=== PATIENT | male | born 1960 | race Hispanic/Latino ===

== ENCOUNTER 2016-09-28 19:01 | Emergency (ER) | payer BC ==
[2016-09-28 19:02] VITALS: BMI 39.8
[2016-09-28 19:16] VITALS: TEMP 98.2
[2016-09-28] MEDS ORDERED: DiphenhydrAMINE 50 mg/ml Inj IVP STA (19:56)
--- NOTE | 2016-09-28 20:02 | ED PDOC ---
Arrival/HPI - General Chief Complaint: Allergic Reaction Time Seen by Provider: 09/28/16 19:43 - History of Present Illness Narrative History of Present Illness (Text): 56M c/o swelling in his upper lip he noticed about 2 hours ago. he says he woke up from a nap this afternoon around 2pm and felt a "funny" sensation above his lip at that time. feel his sx now are about the same, maybe slightly improved. he had hernia surgery 8 days ago and says he thinks this provoked a gout attack (both knees) and so he started taking colchicine which normally helps his attacks. he is also on lisinipril for the last couple years. no FH of angioedema -like sx that he is aware of. Past Medical History - Infectious Disease Hx of Infectious Diseases: None - Cardiac Hx Hypertension: Yes - Psychiatric Hx Depression: No Hx Emotional Abuse: No Hx Physical Abuse: No Hx Substance Use: No - Surgical History Other/Comment: recent hernia surgery - Anesthesia Hx Anesthesia Reactions: No Hx Malignant Hyperthermia: No - Suicidal Assessment Feels Threatened In Home Enviroment: No Family/Social History Family/Social History: Other (nc) Smoking Status: Current Some Days Smoker Hx Alcohol Use: Yes Hx Substance Use: No Hx Substance Use Treatment: Yes Allergies/Home Meds Allergies/Adverse Reactions: Allergies No Known Allergies Allergy (Verified 02/28/12 08:46) Home Medications: Home Meds Medication Instructions Recorded Confirmed Atenolol 50 mg PO DAILY 02/28/12 09/28/16 Lisinopril [Zestril] 40 mg PO DAILY 09/28/16 09/28/16 Review of Systems - Physician Review All systems were reviewed & negative as marked: Yes - Review of Systems Constitutional: absent: Fevers ENT: absent: Hearing Changes Respiratory: absent: SOB, Cough Cardiovascular: absent: Chest Pain Gastrointestinal: absent: Nausea, Vomiting Skin: absent: Rash, Pruritis Neurological: absent: Headache, Focal Weakness Endocrine: absent: Diaphoresis Physical Exam Vital Signs Temp Pulse Resp BP Pulse Ox 09/28/16 19:01 98.2 F 82 16 152/88 H 98 - Systems Exam Head: Present: Atraumatic Pupils: Present: PERRL Extroacular Muscles: Present: EOMI Mouth: Present: Moist Mucous Membranes, Normal Tounge, Other (no swelling inside the mouth or throat). No: Drooling, Trismus, Normal Lips (mild upper lip edema) Pharnyx: No: Uvular Deviation, Muffled/Hoarse Voice, Str[place], Soft Palate/ Uvular Edema Nose (Internal): No: Edematous Neck: Present: Normal Range of Motion Cardiovascular: Present: Regular Rate and Rhythm Neurological: Present: GCS=15, Motor Func Grossly Intact, Normal Sensory Function Skin: Present: Warm, Dry Psychiatric: Present: Alert, Oriented x 3 Medical Decision Making ED Course and Treatment: 09/28/16 22:08 pt resting comfortably, no distress. lip appears less swollen and pt reports feeling better. I did offer admission for observation but he is comfortable w dc home which I feel is reasonable and will return if worse. Advised stop lisinopril. - Lab Interpretations Lab Results: 09/28/16 19:30 09/28/16 19:30 Lab Results 09/28/16 19:30: Sodium 137, Potassium 4.0, Chloride 103, Carbon Dioxide 25, Anion Gap 13, BUN 20, Creatinine 0.8, Est GFR ( Amer) > 60, Est GFR (Non- Af Amer) > 60, Random Glucose 93, Calcium 9.9, Total Bilirubin 0.4, AST 24, ALT 33, Alkaline Phosphatase 60, Total Protein 7.8, Albumin 4.5, Globulin 3.3, Albumin/Globulin Ratio 1.4 09/28/16 19:30: WBC 8.1, RBC 4.12, Hgb 13.3 L, Hct 38.2 L, MCV 92.7, MCH 32.3, MCHC 34.8, RDW 12.4, Plt Count 244, MPV 11.2 H, Gran % 67.5, Lymph % (Auto) 22.1 , [place] % (Auto) 8.6 H, Eos % (Auto) 1.6, Baso % (Auto) 0.2, Gran # 5.48, Lymph # 1.8, [place] # 0.7 H, Eos # 0.1, Baso # 0.02 - Medication Orders Current Medication Orders: Discontinued Medications Diphenhydramine HCl (Benadryl) 50 mg IVP STAT STA Stop: 09/28/16 19:57 Last Admin: 09/28/16 20:15 Dose: 50 mg Famotidine (Pepcid) 40 mg IVP STAT STA Stop: 09/28/16 19:57 Last Admin: 09/28/16 20:15 Dose: 40 mg Methylprednisolone (Solu-Medrol) 125 mg IVP STAT STA Stop: 09/28/16 19:57 Last Admin: 09/28/16 20:13 Dose: 125 mg Disposition/Present on Arrival - Present on Arrival Any Indicators Present on Arrival: No History of DVT/PE: No History of Uncontrolled Diabetes: No Urinary Catheter: No History of Decub. Ulcer: No History Surgical Site Infection Following: None - Disposition Have Diagnosis and Disposition been Completed?: Yes Diagnosis: Angioedema Disposition: HOME/ ROUTINE Disposition Time: 22:09 Condition: IMPROVED
[2016-09-28 20:09] LABS: ADD MANUAL DIFF? NO
[2016-09-28 20:14] LABS: BASO # 0.02 K/mm3 (0.0-2.0); BASO % 0.2 % (0.0-3.0); EOS # 0.1 (0.0-0.7); EOS % 1.6 % (1.5-5.0); GRAN # 5.48 (1.4-6.5); GRAN % 67.5 % (50.0-68.0); HEMATOCRIT 38.2 % (42.0-52.0); LYMPH # 1.8 (1.2-3.4); LYMPH % 22.1 % (22.0-35.0); MEAN CELL VOLUME 92.7 fL (80.0-105.0); MEAN CORPUSCULAR HEMOGLOBIN 32.3 pg (25.0-35.0); MEAN CORPUSCULAR HGB CONC 34.8 g/dl (31.0-37.0); MEAN PLATELET VOLUME 11.2 fl (7.0-11.0); MONO # 0.7 (0.1-0.6); MONO % 8.6 % (1.0-6.0); PLATELET COUNT 244 10^3/uL (120.0-450.0); RED CELL DISTRIBUTION WIDTH 12.4 % (11.5-14.5); WHITE BLOOD COUNT 8.1 10^3/ul (4.5-11.0)
[2016-09-28 20:27] LABS: ALB/GLOB RATIO 1.4 (1.1-1.8); ALKALINE PHOSPHATASE 60 U/L (38-133); ALT/SGPT 33 U/L (7-56); AST/SGOT 24 U/L (15-59); BILIRUBIN,TOTAL 0.4 mg/dL (0.2-1.3); BLOOD UREA NITROGEN 20 mg/dL (7-21); CALCIUM 9.9 mg/dL (8.4-10.5); CARBON DIOXIDE 25 mmol/L (21-33); CHLORIDE 103 mmol/L (98-107); GFR AFRICAN-AMERICAN > 60; GLUCOSE,RANDOM 93 mg/dL (70-110); SODIUM 137 mmol/L (132-148); TOTAL PROTEIN 7.8 g/dL (5.8-8.3)
[2016-09-28 22:22] VITALS: BP 128/84; PULSE 74; RESP 18; O2SAT 97
== END 2016-09-28 22:25 | disposition home or self-care (01) ==
LOC: ED 19:01
DX: T78.3XXA Angioneurotic edema, initial encounter (principal)
CPT/HCPCS: 80053; 85025; 96374; 96375; 99283; J1200; J2930

== ENCOUNTER 2016-10-01 15:32 | Emergency (ER) | payer BC ==
[2016-10-01 15:37] VITALS: BMI 22.4
[2016-10-01 15:41] VITALS: TEMP 98
--- NOTE | 2016-10-01 15:54 | ED PDOC ---
Arrival/HPI - General Chief Complaint: High Blood Pressure Time Seen by Provider: 10/01/16 15:46 - History of Present Illness Narrative History of Present Illness (Text): 10/01/16 15:53 56 yo male, hx of htn, rpesetns with "high blood pressure". as per pt, stopped lisinopril after had upper lip swelling on . unable to see pmd. denies any other complaits. no cp, sob, cuellar, abd pain n/v/d Past Medical History - Provider Review Nursing Documentation Reviewed: Yes - Infectious Disease Hx of Infectious Diseases: None - Cardiac Hx Hypertension: Yes - Psychiatric Hx Depression: No Hx Emotional Abuse: No Hx Physical Abuse: No Hx Substance Use: No - Surgical History Other/Comment: recent hernia surgery - Anesthesia Hx Anesthesia: Yes Hx Anesthesia Reactions: No Hx Malignant Hyperthermia: No - Suicidal Assessment Feels Threatened In Home Enviroment: No Family/Social History - Physician Review Nursing Documentation Reviewed: Yes Family/Social History: Unknown Family HX Smoking Status: Heavy Smoker > 10 Cigarettes Daily Hx Alcohol Use: Yes Hx Substance Use: No Hx Substance Use Treatment: Yes Allergies/Home Meds Allergies/Adverse Reactions: Allergies lisinopril Allergy (Verified 10/01/16 15:43) ANGIOEDEMA Home Medications: Home Meds Medication Instructions Recorded Confirmed Atenolol [Tenormin] 50 mg PO DAILY 10/01/16 10/01/16 Review of Systems - Review of Systems Constitutional: Normal Eyes: Normal ENT: Normal Respiratory: Normal Cardiovascular: Normal Gastrointestinal: Normal Genitourinary Male: Normal Musculoskeletal: Normal Skin: Normal Neurological: Normal Endocrine: Normal Hemo/Lymphatic: Normal Psychiatric: Normal Physical Exam Vital Signs Temp Pulse Resp BP Pulse Ox 10/01/16 18:14 65 17 157/90 H 100 10/01/16 17:32 62 16 162/92 H 99 10/01/16 15:41 98.0 F 78 18 178/89 H 97 Temperature: Afebrile Blood Pressure: Normal Pulse: Regular Respiratory Rate: Normal Appearance: Positive for: Well-Appearing, Non-Toxic, Comfortable Pain Distress: None Mental Status: Positive for: Alert and Oriented X 3 - Systems Exam Head: Present: Atraumatic, Normocephalic Pupils: Present: PERRL Extroacular Muscles: Present: EOMI Conjunctiva: Present: Normal Mouth: Present: Moist Mucous Membranes Neck: Present: Normal Range of Motion Respiratory/Chest: Present: Clear to Auscultation, Good Air Exchange. No: Respiratory Distress, Accessory Muscle Use Cardiovascular: Present: Regular Rate and Rhythm, Normal S1, S2. No: Murmurs Abdomen: Present: Normal Bowel Sounds. No: Tenderness, Distention, Peritoneal Signs Back: Present: Normal Inspection Upper Extremity: Present: Normal Inspection. No: Cyanosis, Edema Lower Extremity: Present: Normal Inspection. No: Edema Neurological: Present: GCS=15, CN II-XII Intact, Speech Normal, Motor Func Grossly Intact, Normal Sensory Function, Normal Cerebellar Funct Skin: Present: Warm, Dry, Normal Color. No: Rashes Psychiatric: Present: Alert, Oriented x 3, Normal Insight, Normal Concentration Medical Decision Making ED Course and Treatment: 10/01/16 15:53 suspected hypertensive urgency, r/o hypertensive emergency. labs pending. 10/01/16 17:10 no e/o of hypertesniev emergency. will start hctz until pmd f/u on sat. - Lab Interpretations Lab Results: 10/01/16 16:10 10/01/16 16:10 Lab Results 10/01/16 16:15: Urine Color Yellow, Urine Appearance Clear, Urine pH 6.0, Ur Specific [place] 1.020, Urine Protein Negative, Urine Glucose (UA) Negative, Urine Ketones Negative, Urine Blood Negative, Urine Nitrate Negative, Urine Bilirubin Negative, Urine Urobilinogen 0.2, Ur Leukocyte Esterase Negative 10/01/16 16:10: WBC 7.7, RBC 4.33, Hgb 13.8 L, Hct 39.8 L, MCV 91.9, MCH 31.9, MCHC 34.7, RDW 12.3, Plt Count 250, MPV 10.9, Gran % 66.3, Lymph % (Auto) 25.6, [place] % (Auto) 6.8 H, Eos % (Auto) 0.9 L, Baso % (Auto) 0.4, Gran # 5.13, Lymph # 2.0, [place] # 0.5, Eos # 0.1, Baso # 0.03 10/01/16 16:10: Sodium 138, Potassium 4.0, Chloride 103, Carbon Dioxide 26, Anion Gap 13, BUN 25 H, Creatinine 0.8, Est GFR ( Amer) > 60, Est GFR ( Non-Af Amer) > 60, Random Glucose 100, Calcium 10.3, Magnesium 2.0, Total Bilirubin 0.4, AST 22, ALT 33, Alkaline Phosphatase 54, Lactate Dehydrogenase 280 L, Total Creatine Kinase 28 L, Troponin I < 0.01, Total Protein 7.7, Albumin 4.6, Globulin 3.1, Albumin/Globulin Ratio 1.5 10/01/16 16:10: PT 11.0, INR 1.02, APTT 30.1 Disposition/Present on Arrival - Present on Arrival Any Indicators Present on Arrival: No History of DVT/PE: No History of Uncontrolled Diabetes: No Urinary Catheter: No History of Decub. Ulcer: No History Surgical Site Infection Following: None - Disposition Have Diagnosis and Disposition been Completed?: Yes Diagnosis: Hypertension Disposition: HOME/ ROUTINE Disposition Time: 06:00 Condition: STABLE Discharge Instructions (ExitCare): Hypertension (ED) Additional Instructions: please follow upw ith your doctor. return toe r with worsening symptoms or concerns. Prescriptions: hydroCHLOROthiazide [Microzide] 12.5 mg PO DAILY #5 cap Referrals: Jackie Flores MD [Primary Care Provider] - Follow up with primary [facility] [Outside] - Follow up with primary [facility] [place]] - Follow up with primary
[2016-10-01 16:30] LABS: ADD MANUAL DIFF? NO
[2016-10-01 16:32] LABS: URINE BILIRUBIN NEGATIVE (NEGATIVE); URINE BLOOD NEGATIVE (NEGATIVE); URINE GLUCOSE (UA) NEGATIVE (NEGATIVE); URINE KETONE NEGATIVE (NEGATIVE); URINE LEUKOCYTE ESTERASE NEGATIVE Leu/uL (NEGATIVE); URINE PROTEIN NEGATIVE mg/dL (<30 mg/dL); URINE UROBILINOGEN 0.2 E.U./dL (<1 E.U./dL)
[2016-10-01 16:34] LABS: BASO # 0.03 K/mm3 (0.0-2.0); BASO % 0.4 % (0.0-3.0); EOS # 0.1 (0.0-0.7); EOS % 0.9 % (1.5-5.0); GRAN # 5.13 (1.4-6.5); GRAN % 66.3 % (50.0-68.0); HEMATOCRIT 39.8 % (42.0-52.0); LYMPH % 25.6 % (22.0-35.0); MEAN CELL VOLUME 91.9 fL (80.0-105.0); MEAN CORPUSCULAR HEMOGLOBIN 31.9 pg (25.0-35.0); MEAN CORPUSCULAR HGB CONC 34.7 g/dl (31.0-37.0); MEAN PLATELET VOLUME 10.9 fl (7.0-11.0); MONO # 0.5 (0.1-0.6); MONO % 6.8 % (1.0-6.0); PLATELET COUNT 250 10^3/uL (120.0-450.0); RED CELL DISTRIBUTION WIDTH 12.3 % (11.5-14.5); WHITE BLOOD COUNT 7.7 10^3/ul (4.5-11.0)
[2016-10-01 16:41] LABS: URINE APPEARANCE CLEAR (CLEAR); URINE COLOR YELLOW (YELLOW)
[2016-10-01 16:45] LABS: INR 1.02 (0.93-1.08); PARTIAL THROMBOPLASTIN TIME 30.1 Seconds (23.7-30.8)
[2016-10-01 16:50] LABS: ALB/GLOB RATIO 1.5 (1.1-1.8); ALKALINE PHOSPHATASE 54 U/L (38-133); ALT/SGPT 33 U/L (7-56); AST/SGOT 22 U/L (15-59); BILIRUBIN,TOTAL 0.4 mg/dL (0.2-1.3); BLOOD UREA NITROGEN 25 mg/dL (7-21); CALCIUM 10.3 mg/dL (8.4-10.5); CARBON DIOXIDE 26 mmol/L (21-33); CHLORIDE 103 mmol/L (98-107); GFR AFRICAN-AMERICAN > 60; GLUCOSE,RANDOM 100 mg/dL (70-110); SODIUM 138 mmol/L (132-148); TOTAL PROTEIN 7.7 g/dL (5.8-8.3)
[2016-10-01 17:07] LABS: TROPONIN I < 0.01 ng/mL
[2016-10-01 18:15] VITALS: BP 157/90; PULSE 65; RESP 17; O2SAT 100
--- NOTE | 2016-10-02 17:43 | CARD ---
APPROVED REPORT EKG Measurement Heart [id number] <Conclusion> Normal sinus rhythm Normal ECG
== END 2016-10-01 18:15 | disposition home or self-care (01) ==
LOC: ED 15:32
DX: I10 Essential (primary) hypertension (principal); F17.210 Nicotine dependence, cigarettes, uncomplicated